=== PATIENT | male | born 1975 | race African-American/Black ===

== ENCOUNTER 2017-11-11 03:44 | Emergency (ER) | payer OTHER ==
[~2017-11-11] VITALS: Ht 172.7 cm; Wt 81.7 kg
[2017-11-11] MEDS ORDERED: AMOXICILLIN 50500 M1 PO (04:22)
[2017-11-11 05:12] VITALS: BP 131/84
== END 2017-11-11 05:13 | disposition home or self-care (01) ==
LOC: ER 03:44
DX: K08.89 Other specified disorders of teeth and supporting structures (principal); G89.29 Other chronic pain